=== PATIENT | female | born 1960 | race Caucasian/White ===

== ENCOUNTER 2021-11-01 20:07 | Emergency (ER) | payer BC, OTHER ==
[~2021-11-01] VITALS: Ht 170.2 cm; Wt 78.0 kg
[2021-11-01] MEDS ORDERED: IOHEXOL 350 MG/ML 100ML IJ ONE (21:05)
[2021-11-01 21:41] LABS: Basophils # (auto) 0.2 10 ^3/uL (0-0.2); Basophils % (auto) 2.1 % (0.0-2.0); Eosinophils # (auto) 0.2 10 ^3/uL (0-0.8); Eosinophils % (auto) 2.1 % (0.0-7.0); Hematocrit 42.2 % (36.0-46.0); Hemoglobin 14.2 g/dL (12.2-16.2); Lymphocytes # (auto) 2.4 10 ^3/uL (0.4-5.4); Lymphocytes % (auto) 30.6 % (10.0-50.0); Mean Corpuscular Hemoglobin 28.5 pg (28.0-32.0); Mean Corpuscular Hgb Conc. 33.6 g/dL (32.0-36.0); Mean Corpuscular Volume 84.9 fL (80.0-100.0); Monocytes # (auto) 0.5 10 ^3/uL (0-1.3); Monocytes % (auto) 6.4 % (0.0-12.0); Neutrophils # (auto) 4.7 10 ^3/uL (1.6-8.6); Neutrophils % (auto) 58.8 % (37.0-80.0); Red Blood Cells 4.97 10^6/uL (4.0-5.20); Red Cell Distribution Width 13.3 % (11.8-14.3)
[2021-11-01 21:51] LABS: BUN/Creatinine Ratio 20.7; Calcium 9.1 mg/dL (8.5-10.1); Potassium 3.7 mmol/L (3.5-5.1)
[2021-11-01 21:54] LABS: Bilirubin, Total 0.4 mg/dL (0.2-1.0); Total Protein 7.1 g/dL (6.4-8.2)
[2021-11-01 22:29] LABS: INR 0.94 (0.9-1.15)
[2021-11-01] MEDS ORDERED: HYDR25TA5 GT (22:56)
[2021-11-02 00:33] VITALS: BP 162/74
[2021-11-02] MEDS ORDERED: AML5T PO (00:35)
== END 2021-11-02 00:38 | disposition home or self-care (01) ==
LOC: ER 20:07
DX: R51.9 Headache, unspecified (principal); I10 Essential (primary) hypertension; Z88.1 Allergy status to other antibiotic agents
CPT/HCPCS: 36415; 70450; 70496; 70498; 80053; 85025; 85610; 93005; 99285; Q9967